=== PATIENT | female | born 2000 ===

== ENCOUNTER 2022-04-07 22:43 | Emergency (ER) | payer BC ==
[2022-04-07] MEDS ORDERED: propofoL 50 ML ONE (23:06)
[2022-04-07] MEDS ORDERED: Sodium Chloride 0.9% 10 ML Syringe FLUSH PRN ×2 (23:08→23:16)
[2022-04-07 23:30] LABS: CHLORIDE,CL 106 mmol/L (98-107); SODIUM,NA 141 mmol/L (136-145)
[2022-04-07 23:33] LABS: ANION GAP 16.9 mmol/L (5-15)
[2022-04-07] MEDS ORDERED: Lactated Ringers 1,000 ML IV ONE ×2 (23:34)
[2022-04-07 23:49] LABS: ACETAMINOPHEN 0 ug/ml (10-30)
[2022-04-07 23:49] LABS: BARBITURATE SCREEN,URINE NEGATIVE (NEGATIVE); BENZODIAZEPINES SCREEN,URINE NEGATIVE (NEGATIVE); BUPRENORPHINE SCREEN,URINE NEGATIVE (NEGATIVE); METHAMPHETAMINE SCREEN, URINE NEGATIVE (NEGATIVE); THC SCREEN,URINE 50 NG/ML NEGATIVE (NEGATIVE)
[2022-04-08] MEDS ORDERED: fentaNYL 100 MCG/2 ML SDV IVPUSH ONE ×2 (00:09→02:45)
[2022-04-08] MEDS ORDERED: Etomidate 2 MG/ML 10 ML SDV IVPUSH ONE (00:10)
[2022-04-08] MEDS ORDERED: Succinylcholine 200 MG/10 ML MDV IV STA (00:10)
[2022-04-08] MEDS ORDERED: propofoL 50 ML ONE (00:12)
[2022-04-08] MEDS: fentaNYL 100 MCG/2 ML SDV IVPUSH ONE ×2 (00:20→01:50)
[2022-04-08] MEDS ORDERED: Propofol 200 MG/20 ML SDV ONE ×2 (01:50→07:35)
[2022-04-08] MEDS ORDERED: propofoL 50 ML IV SCH (03:00)
[2022-04-08] MEDS ORDERED: fentaNYL 100 MCG/2 ML SDV ONE (07:32)
[2022-04-08] MEDS ORDERED: Etomidate 2 MG/ML 10 ML SDV ONE (07:34)
== END 2022-04-08 02:00 | disposition short-term general hospital (02) ==
LOC: VM.ED 22:43
DX: R40.4 Transient alteration of awareness (principal)
CPT/HCPCS: 31500; 51702; 70450; 71045; 80053; 80143; 80179; 80305; 80307; 81001; 81025; 82803; 83605; 83735; 84443; 84484; 85025; 86140; 96361; 96374; 96376; 99285; J2704; J3010; J3490; J7120; J0330